=== PATIENT | female | born 1965 | race Caucasian/White ===

== ENCOUNTER 2019-06-08 17:41 | Emergency (ER) | payer SELFPAY ==
[~2019-06-08] VITALS: Ht 157.5 cm; Wt 63.6 kg
[2019-06-08] MEDS ORDERED: [UNRECOGNIZED DRUG - MIXTURE] PO (17:52)
[2019-06-08] MEDS ORDERED: LOSA1TAB37 PO (17:52)
[2019-06-08] MEDS ORDERED: DEXAMETHASONE SOD PHOS 4 MG/ML 5 ML VIAL IVP ONE (19:45)
[2019-06-08] MEDS ORDERED: KETOROLAC TROMETHAMINE 30 MG/ML VIAL IVP ONE (19:45)
[2019-06-08] MEDS ORDERED: ONDANSETRON HCL 4 MG/2 ML VIAL IVP ONE (19:45)
[2019-06-08 21:18] VITALS: BP 122/68
== END 2019-06-08 21:20 | disposition home or self-care (01) ==
LOC: EMS 17:44
DX: G43.909 Migraine, unspecified, not intractable, without status migrainosus (principal); I10 Essential (primary) hypertension; Z90.89 Acquired absence of other organs
CPT/HCPCS: 70450; 96374; 96375; 99284; J1100; J1885; J2405